=== PATIENT | female | born 1985 | race Caucasian/White ===

== ENCOUNTER 2018-11-01 06:45 | Day surgery (SDC) | payer BC ==
[2018-10-29 12:49] LABS: HEMOGLOBIN A1C 9.5 % (4.5-6.2)
[2018-10-29 12:56] LABS: CLARITY,URINE CLEAR (Clear); COLOR,URINE YELLOW (Yellow); GLUCOSE, URINE 100 mg/dl (Neg); KETONES,URINE NEGATIVE (Neg); LEUKOCYTE ESTERASE ,URINE TRACE (Neg); NITRITES, URINE NEGATIVE (Neg); OCCULT BLOOD,URINE NEGATIVE (Neg); PROTEIN,URINE NEGATIVE (Neg); UROBILINOGEN,URINE 0.2 E.U/dL (0.2-1.0)
[2018-10-29 12:57] LABS: UA COLLECTION TYPE CLN CATCH MIDSTREAM
[2018-10-29 13:01] LABS: HCG SERUM QL NEGATIVE
[2018-10-29 13:09] LABS: BACTERIA,URINE NONE SEEN /HPF (Neg); RBC,URINE NONE SEEN /HPF (0-2); SQUAMOUS EPITHELIAL CELL,UR FEW /LPF (FEW); WBC,URINE 0-4 /HPF (0-4)
[2018-11-01] VITALS (23 sets, daily range): BP systolic 97–123; BP diastolic 48–75
[~2018-11-01] VITALS: Ht 162.6 cm; Wt 66.1 kg
[~2018-11-01 06:45] MED LIST: HUM10VIA SQ; METF-438 PO; NOVLG; cefotetan 2gm/isosm dext IVPB 50 ML IV ONE; famotidine 20mg tablet PO ONE; scopolamine 1.5mg patch.TD72 TD ONE
[2018-11-01] MEDS ORDERED: ringers solution, lacted 1,000 ML IV SCH (07:21)
[2018-11-01] MEDS ORDERED: proMETHazine 25mg rectal suppository RC PRN ×2 (07:25)
[2018-11-01] MEDS ORDERED: fentaNYL/PF 50MCG/1 ML 2ML syringe IV PRN (07:25)
[2018-11-01] MEDS ORDERED: morphine 4 MG/ML inj SYRINge IV PRN (07:25)
[2018-11-01] MEDS ORDERED: ondansetron/PF 4mg/2ml inj IV PRN ×2 (07:25→10:55)
[2018-11-01] MEDS ORDERED: proCHLORperazine 10 MG/2 ml inj IV PRN (07:25)
[2018-11-01] MEDS ORDERED: hydrALAZINE 20mg/ml inj. IV PRN (07:25)
[2018-11-01] MEDS ORDERED: labetalol 20mg/4ml (5mg/ml) syringe IV PRN (07:25)
[2018-11-01] MEDS: ringers solution, lacted 1,000 ML IV SCH ×4 (07:31→14:28)
[2018-11-01] MEDS ORDERED: fentaNYL/PF 50MCG/1 ML 2ML syringe ONE (08:22)
[2018-11-01] MEDS ORDERED: epiNEPHrine 1 mg/ml inj ONE (08:23)
[2018-11-01] MEDS ORDERED: clindamycin phosphate 40gm vag cream ONE (08:23)
[2018-11-01] MEDS ORDERED: BUPIVAcaine/PF 2.5mg/ml (0.25%) 10ml vial ONE (08:23)
[2018-11-01] MEDS ORDERED: midazolam 2 mg/2 ml injection ONE (08:23)
[2018-11-01] MEDS ORDERED: vasoPRESSIN 20 units/ml inj. ONE (08:24)
[2018-11-01] MEDS ORDERED: rocuronium 10mg/ml inj IV ONE (08:25)
[2018-11-01] MEDS ORDERED: glycopyrrolate 0.2mg/ml inj ONE (08:25)
[2018-11-01] MEDS ORDERED: LIDOcaine 2% (20mg/ml) 5ml vial ONE (08:25)
[2018-11-01] MEDS ORDERED: dexamethasone sod phosphate 4mg/ml inj. ONE (08:25)
[2018-11-01] MEDS ORDERED: neostigmine methylsulfate 1 MG/ML 10ml vial ONE (08:25)
[2018-11-01] MEDS ORDERED: propofol inj 20 ML IV ONE (08:25)
[2018-11-01] MEDS ORDERED: ondansetron/PF 4mg/2ml inj ONE (08:25)
[2018-11-01] MEDS ORDERED: sevoflurane 250ml liquid IH ONE (08:35)
[2018-11-01] MEDS ORDERED: ketorolac trometh. 30mg/ml inj. ONE (09:33)
[2018-11-01] MEDS ORDERED: diphenhydrAMINE 50 mg/ml inj IV PRN (10:55)
[2018-11-01] MEDS ORDERED: temazepam 15mg capsule PO PRN (10:55)
[2018-11-01] MEDS ORDERED: LORazepam 2 mg/ml vial IV PRN (10:55)
[2018-11-01] MEDS ORDERED: metoclopramide 5 mg/ml inj IV PRN (10:55)
[2018-11-01] MEDS ORDERED: LORazepam 1 MG tablet PO PRN (10:55)
[2018-11-01] MEDS ORDERED: magnesium hydroxide 30ml (MOM) UD suspension PO PRN (10:55)
[2018-11-01] MEDS ORDERED: normal saline 500ml IV soln 500 ML IV PRN (10:55)
[2018-11-01] MEDS ORDERED: HYDROcodone/acetaminophen 5mg/325mg tablet PO PRN ×2 (10:55)
--- NOTE | 2018-11-01 11:00 | NUR ---
Received from OR via BED, accompanied by Anesthesiologist DR KINCAID and report given by Anesthesiologist. PT DROWSY, NO S/S OF DISTRESS/DISCOMFORT, 2 SMALL LAP SITES BILAT ABDOMEN, 1 UMBILICAL LAP SITE, CDI, W/DERMABOND, RENY PAD IN PLACE, CDI, BAINS CATHETER TO GRAVITY DRAINAGE, SMALL AMT OF YELLOW URINE IN DRAINAGE BAG. Addendum: 11/01/18 at 1140 by Jaleesa Rehman RN Amended: Links added.
[2018-11-01] MEDS: morphine 4 MG/ML inj SYRINge IV PRN ×2 (11:35→11:53)
[2018-11-01] MEDS: fentaNYL/PF 50MCG/1 ML 2ML syringe IV PRN ×2 (12:14→12:45)
--- NOTE | 2018-11-01 13:00 | NUR ---
Report called to receiving nurse. Transferred via BED, 1 BAG OF PERSONAL Belongings, 1 LARGE BAG/PURSE SENT W/PT TO ROOM 356B, RECEIVING RN AT BEDSIDE TO RECEIVE PT, BLL, CALL LIGHT GIVEN, SIDE RAILS UP X 2. Special Issues communicated to receiving nurse. YES. Addendum: 11/01/18 at 1321 by Jaleesa Rehman RN Amended: Links added.
--- NOTE | 2018-11-01 13:31 | NUR ---
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 I asked for clarification and he expressed concerns that someone he's arrested might see him, or find out his is in the hospital and wants to retaliate he'd "have to kill them". I explained that I don't have a private room available at this time but as soon as possible we would attempt to accommodate his request, and asked if he'd like to speak with our security department but he stated, "that's not necessary right now". ANNEMARIE Gamez, and Katya, Director, notified.
[2018-11-01] MEDS: simethicone 80mg chew tab PO SCH ×2 (13:35→17:45)
[2018-11-01] MEDS: ketorolac trometh. 30mg/ml inj. IV PRN ×2 (15:51→22:15)
[2018-11-01] MEDS ORDERED: INSULIN ASPART 100 UNIT/1 ML SQ SCH (17:00)
[2018-11-01] MEDS ORDERED: [UNRECOGNIZED DRUG - OTHER] SQ SCH (17:00)
[2018-11-01] MEDS: metFORMIN 500mg tablet PO SCH (17:45)
[2018-11-01] MEDS: INSULIN ASPART 100 UNIT/1 ML SQ SCH (17:58)
[2018-11-01] MEDS: [UNRECOGNIZED DRUG - OTHER] SQ SCH (17:58)
--- NOTE | 2018-11-01 18:30 | NUR ---
Patient in room [facility]. I have received report from ANNEMARIE Gamez and had the opportunity to ask questions and assume patient care.
[2018-11-01] MEDS ORDERED: INSULIN ISOPHANE SQ SCH (21:00)
[2018-11-01] MEDS: docusate sod 100mg capsule PO SCH (21:20)
[2018-11-02 00:17] VITALS: BP 103/51
[2018-11-02] MEDS: ketorolac trometh. 30mg/ml inj. IV PRN ×2 (05:42→12:56)
--- NOTE | 2018-11-02 06:31 | NUR ---
Problems reprioritized. Patient report given, questions answered & plan of care reviewed with ANNEMARIE Hawkins.
--- NOTE | 2018-11-02 06:37 | NUR ---
Patient in room [facility]. I have received report from Sebastián SHARPE and had the opportunity to ask questions and assume patient care.
[2018-11-02 06:58] VITALS: BP 98/55
[2018-11-02] MEDS: docusate sod 100mg capsule PO SCH (07:33)
[2018-11-02] MEDS: metFORMIN 500mg tablet PO SCH (07:33)
[2018-11-02] MEDS: simethicone 80mg chew tab PO SCH ×2 (07:33→12:41)
[2018-11-02] MEDS: INSULIN ASPART 100 UNIT/1 ML SQ SCH ×2 (07:35→12:42)
[2018-11-02] MEDS: [UNRECOGNIZED DRUG - OTHER] SQ SCH ×2 (07:35→12:42)
[2018-11-02] MEDS: enoxaparin 40mg/0.4ml syringe SQ SCH ×2 (07:41→08:33)
[2018-11-02 08:19] LABS: BASOPHILS # (AUTO) 0.1 X10'3 (0-0.2); BASOPHILS % (AUTO) 1.2 % (0-1); EOSINOPHILS # (AUTO) 0.3 X10'3 (0-0.9); EOSINOPHILS % (AUTO) 3.1 % (0-6); HEMATOCRIT 29.6 % (35.0-45.0); HEMOGLOBIN 9.8 g/dl (12.0-16.0); LYMPHOCYTES # (AUTO) 2.7 X10'3 (1.1-4.8); LYMPHOCYTES % (AUTO) 28.1 % (21-51); MEAN CORPUSCULAR HEMOGLOBIN 27.1 PG (27.0-31.0); MEAN CORPUSCULAR HGB CONC 33.2 g/dL (33.0-36.5); MEAN CORPUSCULAR VOLUME 81.5 FL (78-98); MEAN PLATELET VOLUME 8.1 FL (7.4-10.4); MONOCYTES # (AUTO) 0.9 X10'3 (0-0.9); MONOCYTES % (AUTO) 9.6 % (2-12); NEUTROPHILS # (AUTO) 5.6 X10'3 (1.8-7.7); PLATELET COUNT 217 X10'3 (140-440); RED BLOOD COUNT 3.63 X10'6 (4.20-5.60); RED CELL DISTRIBUTION WIDTH 15.6 % (11.5-14.5); WHITE BLOOD COUNT 9.7 X10'3 (4.5-11.0)
--- NOTE | 2018-11-02 09:28 | NUR ---
Dr. Schmidt informed that pt hasnt voided since crabtree cath removal at 0540. stated if pt doesnt void in 6hrs or has over 100ml on bladder scan then to replace crabtree catheter. Also informed of low BP this AM of . No new orders at this time.
[2018-11-02 09:51] LABS: ALBUMIN 2.7 G/DL (3.4-5.0); ANION GAP 6 (8-16); BLOOD UREA NITROGEN 16 MG/DL (7-18); BUN/CREATININE RATIO 18.2 (6.6-38.0); CALCIUM 8.3 MG/DL (8.5-10.1); CHLORIDE 104 MMOL/L (99-107); CREATININE 0.88 MG/DL (0.40-0.90); GLUCOSE 106 MG/DL (70-104); POTASSIUM 3.7 MMOL/L (3.5-5.1); SODIUM 138 MMOL/L (135-145); TOTAL CARBON DIOXIDE 28.2 MMOL/L (24-32); eGFR 74 ML/MIN
[2018-11-02 11:14] VITALS: BP 104/53
== END 2018-11-02 13:40 | disposition home or self-care (01) ==
LOC: PAS 06:45 → SUR 3N 11:01 → PAS 11-02 13:40
PROVIDERS: ATTEND Obstetrics & Gynecology Obstetrics
DX: Z30.2 Encounter for sterilization (principal); N81.2 Incomplete uterovaginal prolapse; N81.3 Complete uterovaginal prolapse; D64.9 Anemia, unspecified; N83.8 Other noninflammatory disorders of ovary, fallopian tube and broad ligament; E11.9 Type 2 diabetes mellitus without complications; Z79.899 Other long term (current) drug therapy; Z83.3 Family history of diabetes mellitus; Z82.49 Family history of ischemic heart disease and other diseases of the circulatory system
CPT/HCPCS: 36415; 57260; 58670; 80048; 81001; 82948; 83036; 84703; 85025; 86885; 86900; 86901; 87088; J0171; J1100; J1885; J2001; J2250; J2270; J2405; J2704; J2710; J3010; J3490; J7120; A4344; A7000; G0378; J1650; J7030